=== PATIENT | male | born 1955 | race Caucasian/White ===

== ENCOUNTER 2022-01-24 08:58 | Emergency (ER) | payer MEDICAID, MEDICARE, SELFPAY ==
[2022-01-24 09:21] LABS: #Basophils 0.3 thou/uL (0.0-0.2); #Lymphocytes 1.1 thou/uL (1.20-3.40); #Monocytes 0.7 thou/uL (0.11-0.59); %Basophils 2.6 % (0.0-1.0); %Eosinophils 0.1 % (0.0-10.0); %Lymphocytes 8.6 % (21.0-51.0); %Monocytes 5.1 % (0.0-10.0); %Neutrophils 83.7 % (42.0-75.0); Hemoglobin 14.5 g/dL (14.0-18.0); Mean Corpuscular HGB CONC 31.7 g/dL (32.0-36.0); Mean Corpuscular Hemoglobin 32.7 pg (27.0-31.0); Mean Platelet Volume 7.3 fL (7.4-10.4); Platelet Count 250 thou/uL (130-400); RBC Distribution Width 12.3 % (11.5-14.5); Red Blood Cell (RBC) Count 4.44 mill/uL (4.70-6.10); White Blood Cell (WBC) Count 13.1 thou/uL (4.8-10.8)
[2022-01-24] MEDS ORDERED: Nitroglycerin 2% Ointment 1 INCH/1 GM Packet ONE (09:23)
[2022-01-24 09:36] LABS: ALT (SGPT) 13 U/L (8-55); AST (SGOT) 51 U/L (5-34); Albumin 3.8 g/dL (3.4-4.8); Alkaline Phosphatase 110 U/L (40-110); Anion Gap 24 mmol/L (10-20); BUN (Urea Nitrogen) 7 mg/dL (8.4-25.7); Bilirubin, Total 0.9 mg/dL (0.2-1.2); Calc. Creatinine Clearance 0 mL/min (70-130); Calcium 8.6 mg/dL (7.8-10.44); Carbon Dioxide 20 mmol/L (23-31); Chloride 75 mmol/L (98-107); Globulin 4.2 g/dL (2.4-3.5); Glucose 150 mg/dL (80-115); Lipase 11 U/L (8-78); Potassium 4.6 mmol/L (3.5-5.1)
[2022-01-24 09:39] LABS: Sodium 114 mmol/L (136-145)
[2022-01-24] MEDS ORDERED: Sodium Chloride 0.9% 1,000 ML ONE (09:51)
[2022-01-24] MEDS ORDERED: methylPREDNISolone Sod Succ/PF 125 MG/2 ML VIAL ONE (09:52)
[2022-01-24 10:25] LABS: CKMB 30.4 ng/mL (0-6.6)
[2022-01-24] MEDS ORDERED: Azithromycin 500 MG VIAL ONE (10:37)
[2022-01-24] MEDS ORDERED: Sodium Chloride 0.9% 100 ML ONE (10:37)
[2022-01-24] MEDS ORDERED: Sodium Chloride 0.9% 250 ML 250 ML ONE (10:37)
[2022-01-24] MEDS ORDERED: cefTRIAXone\\ROCEPHIN 2 GM VIAL ONE (10:37)
[2022-01-24 11:08] LABS: SARS-CoV-2 NAA Rapid Test Not Detected (NotDetected)
[2022-01-24 11:50] LABS: Clarity Clear (Clear)
[2022-01-24 11:51] LABS: Bilirubin Negative (Negative); Blood, Urine Trace (Negative); Glucose, Urine (Dipstick) Negative (Negative); Ketone, Urine 80 mg/dL (Negative); Leukocyte Negative (Negative); Nitrite Negative (Negative); Protein, Urine (Dipstick) 30 mg/dL (Neg-Trace); Specific Gravity, Urine 1.025 (1.005-1.030); pH, Urine 6.5 (5.0-9.0)
[2022-01-24 11:52] LABS: RBC/HPF 0-3 HPF (0-3)
== END 2022-01-24 11:30 | disposition short-term general hospital (02) ==
LOC: NAV ERS 08:58
DX: J18.9 Pneumonia, unspecified organism (principal); I24.9 Acute ischemic heart disease, unspecified; R06.03 Acute respiratory distress; I50.9 Heart failure, unspecified; J44.9 Chronic obstructive pulmonary disease, unspecified; E87.1 Hypo-osmolality and hyponatremia; R09.02 Hypoxemia; F17.200 Nicotine dependence, unspecified, uncomplicated; R00.0 Tachycardia, unspecified; Z20.822 Contact with and (suspected) exposure to COVID-19
CPT/HCPCS: 51702; 71045; 80053; 81003; 81015; 82553; 83605; 83690; 83880; 83930; 83935; 84484; 85025; 87040; 93005; 94640; 94660; 94760; 96365; 96375; J0456; J0696; J2930; J7050; J7620; U0002